=== PATIENT | female | born 1980 | race Caucasian/White ===

== ENCOUNTER 2017-05-15 07:39 | Day surgery (SDC) | payer OTHER ==
[~2017-05-15] VITALS: Ht 170.2 cm; Wt 111.3 kg
[2017-05-15] MEDS ORDERED: ACYC800 PO (08:19)
[2017-05-15] MEDS ORDERED: Omeprazole20 M1 (08:19)
[2017-05-15] MEDS ORDERED: CHOL10002 (08:19)
== END 2017-05-15 11:54 | disposition home or self-care (01) ==
LOC: ORSCSDS 07:39
PROVIDERS: Obstetrics & Gynecology
PROC: 0UT74ZZ Resection of Bilateral Fallopian Tubes, Percutaneous Endoscopic Approach (ICD-10-PCS; principal; 2017-05-15 09:00)
DX: Z30.2 Encounter for sterilization (principal); N80.3 Endometriosis of pelvic peritoneum; E03.9 Hypothyroidism, unspecified; K21.9 Gastro-esophageal reflux disease without esophagitis; E66.01 Morbid (severe) obesity due to excess calories; Z68.38 Body mass index [BMI] 38.0-38.9, adult; Z79.899 Other long term (current) drug therapy
CPT/HCPCS: 88302; J0171; J0690; J1100; J2250; J2405; J2710; J3010; J7120

== ENCOUNTER → 2017-08-27 | Outpatient (CLI) | payer OTHER ==
[~2017-08-27] MED LIST: ACYC800 PO; CHOL10002; Omeprazole20 M1
[2017-08-27 18:01] LABS: BASOPHILS ABSOLUTE AUTO 0.04 K/mm3 (0.00-0.23); BASOPHILS PERCENT AUTO 0 % (0-2); EOSINOPHILS ABSOLUTE AUTO 0.13 K/mm3 (0.00-0.68); EOSINOPHILS PERCENT AUTO 1 % (0-6); Hematocrit 44.6 % (33.0-51.0); Hemoglobin 14.9 g/dL (11.5-16.0); IMMATURE GRAN ABSOLUTE AUTO 0.02 K/mm3 (0.00-0.10); IMMATURE GRAN PERCENT AUTO 0 % (0-1); LYMPHOCYTES ABSOLUTE AUTO 2.67 K/mm3 (0.84-5.20); LYMPHOCYTES PERCENT AUTO 30 % (21-46); MONOCYTES ABSOLUTE AUTO 0.55 K/mm3 (0.16-1.47); MONOCYTES PERCENT AUTO 6 % (4-13); Mean Corpuscular HGB 30.1 pg (26.0-34.0); Mean Corpuscular HGB Conc 33.4 g/dL (31.5-36.5); Mean Corpuscular Volume 90 fL (80-100); Mean Platelet Volume 10.3 fL (9.1-12.4); NEUTROPHILS ABSOLUTE AUTO 5.59 K/mm3 (1.96-9.15); NEUTROPHILS PERCENT AUTO 62 % (41-73); Platelet Count 271 K/mm3 (150-400); RDW Coefficient Variation 12.6 % (11.7-14.2); RDW Standard Deviation 41.9 fL (35.1-46.3); Red Blood Cell Count 4.95 M/mm3 (3.80-5.20)
[2017-08-27 18:41] LABS: Alanine Aminotransfer (ALT/SGP 31 U/L (12-78); Albumin, Blood 3.8 g/dL (3.4-5.0); Albumin/Globulin Ratio 1.1 (0.8-1.8); Alk Phos 88 U/L (50-136); Anion Gap 10 mmol/L (6-16); Aspartate Aminotrans (AST/SGOT 18 U/L (12-37); Bilirubin, Total 0.8 mg/dL (0.1-1.0); Blood Urea Nitrogen 11 mg/dL (8-24); CHOL/HDL RATIO 6.1; CO2, Blood 24 mmol/L (21-32); Calcium, Blood 8.7 mg/dL (8.5-10.1); Chloride, Blood 106 mmol/L (98-108); Cholesterol 196 mg/dL (50-200); Creatinine, Blood 0.73 mg/dL (0.40-1.00); Globulin, Blood 3.5 g/dL (2.2-4.0); Glomerular Filtration Rate >60 (60-); Glucose, Blood 98 mg/dL (70-99); HDL Cholesterol 32 mg/dL (>39); LDL/HDL RATIO 3.2; Low Density Lipoprotein Chol 102 mg/dL (0-110); Potassium, Blood 4.2 mmol/L (3.5-5.5); Sodium, Blood 140 mmol/L (136-145); Total Protein, Blood 7.3 g/dL (6.4-8.2); Triglycerides 309 mg/dL (30-140); Very Low Density Lipoprot Chol 61 mg/dL (6-28)
== END ==
LOC: LAB SHORT 08:17
PROVIDERS: Nurse Practitioner Adult Health
DX: E03.9 Hypothyroidism, unspecified (principal); E66.9 Obesity, unspecified; E78.5 Hyperlipidemia, unspecified; F41.8 Other specified anxiety disorders; Z86.32 Personal history of gestational diabetes
CPT/HCPCS: 80053; 80061; 83036; 84443; 85025

== ENCOUNTER 2018-08-14 05:03 | Emergency (ER) | payer OTHER ==
[~2018-08-14] VITALS: Ht 170.2 cm; Wt 108.0 kg
[2018-08-14] MEDS ORDERED: METPRE4DP PO (08:47)
== END 2018-08-14 09:15 | disposition home or self-care (01) ==
LOC: ER 05:03
DX: L50.0 Allergic urticaria (principal); Z87.891 Personal history of nicotine dependence; Z88.8 Allergy status to other drugs, medicaments and biological substances; Z88.0 Allergy status to penicillin
CPT/HCPCS: 36415; 96374; 96375; 99283-25; J1200; J2930

== ENCOUNTER 2018-10-04 22:07 | Emergency (ER) | payer OTHER ==
[~2018-10-04] VITALS: Ht 170.2 cm; Wt 108.9 kg
[~2018-10-04 22:07] MED LIST changes: +METPRE4DP PO
[2018-10-04] MEDS ORDERED: Lipitor20 MG PO (22:27)
[2018-10-04] MEDS ORDERED: DAILY VIT (22:28)
[2018-10-04] MEDS ORDERED: EPIPEN0.3 MG/0.3 (22:28)
[2018-10-05] MEDS ORDERED: IBUP600 PO (12:23)
[2018-10-05] MEDS ORDERED: Norco 7.5-3251 EACH PO (12:23)
== END 2018-10-04 23:19 | disposition home or self-care (01) ==
LOC: ER 22:07
DX: L50.0 Allergic urticaria (principal); Z91.013 Allergy to seafood; Z88.0 Allergy status to penicillin; Z88.8 Allergy status to other drugs, medicaments and biological substances; Z79.899 Other long term (current) drug therapy; Z87.891 Personal history of nicotine dependence
CPT/HCPCS: 96374; 96375; 99283-25; J1200; J2930

== ENCOUNTER 2018-10-05 11:09 | Emergency (ER) | payer OTHER ==
[~2018-10-05] VITALS: Ht 170.2 cm; Wt 108.9 kg
[~2018-10-05 11:09] MED LIST changes: +DAILY VIT; +EPIPEN0.3 MG/0.3; +Lipitor20 MG PO
[2018-10-05] MEDS ORDERED: IBUP600 PO (12:23)
[2018-10-05] MEDS ORDERED: Norco 7.5-3251 EACH PO (12:23)
== END 2018-10-05 13:30 | disposition home or self-care (01) ==
LOC: ER 11:09
DX: S20.219A Contusion of unspecified front wall of thorax, initial encounter (principal); V43.52XA Car driver injured in collision with other type car in traffic accident, initial encounter; Z91.013 Allergy to seafood; Z88.0 Allergy status to penicillin; Z88.1 Allergy status to other antibiotic agents; Z91.048 Other nonmedicinal substance allergy status; Z79.899 Other long term (current) drug therapy; Z87.891 Personal history of nicotine dependence
CPT/HCPCS: 71046; 99284-25

== ENCOUNTER → 2019-08-02 | Outpatient (CLI) | payer OTHER ==
[~2019-08-02] MED LIST changes: +IBUP600 PO; +Norco 7.5-3251 EACH PO
[2019-08-03 11:09] LABS: ABBOTT SARS COV-2 IGG AB Negative (Negative); SARS COV-2 IGG AB Negative
== END | disposition home or self-care (01) ==
LOC: LAB SHORT 12:26 → LAB EV 12:26
PROVIDERS: Physician Assistant Medical
DX: R05 Cough (principal)
CPT/HCPCS: 86769

== ENCOUNTER → 2020-10-21 | Outpatient (CLI) | payer OTHER | END | disposition home or self-care (01) | LOC: LAB SHORT 12:40 → LAB 12:40 | DX: N39.0 Urinary tract infection, site not specified (principal) | CPT/HCPCS: 87077; 87086; 87186 ==

== ENCOUNTER 2023-04-15 01:43 | Observation (INO) | payer OTHER ==
[~2023-04-15] VITALS: Ht 170.2 cm; Wt 106.7 kg
[~2023-04-15 01:43] MED LIST changes: -EPIPEN0.3 MG/0.3; +EPIPEN0.3 MG/0.3 IM
[2023-04-15 02:26] LABS: Hematocrit 36.3 % (33.0-51.0); Hemoglobin 12.5 g/dL (11.5-16.0); Mean Corpuscular HGB 30.5 pg (26.0-34.0); Mean Corpuscular HGB Conc 34.4 g/dL (31.5-36.5); Mean Corpuscular Volume 89 fL (80-100); Mean Platelet Volume 9.7 fL (9.1-12.4); Platelet Count 227 K/mm3 (150-400); RDW Coefficient Variation 12.8 % (11.7-14.2); RDW Standard Deviation 41.9 fL (35.1-46.3); White Blood Cell Count 19.74 K/mm3 (4.00-11.30)
[2023-04-15] MEDS ORDERED: NS 1,000 ML IV SCH ×2 (02:40→04:45)
[2023-04-15] MEDS ORDERED: CefTRIAXone Sodium 1,000 MG in NS 50 ML IV ONE (02:40)
[2023-04-15 02:44] LABS: Albumin, Blood 2.3 g/dL (3.4-5.0); Albumin/Globulin Ratio 0.4 (0.8-1.8); Bilirubin, Total 0.8 mg/dL (0.1-1.0); Bun/Creatinine Ratio 11.4 (12.0-20.0); Creatinine, Blood 0.7 mg/dL (0.40-1.00); Globulin, Blood 5.4 g/dL (2.2-4.0); Phosphorus, Blood 2.7 mg/dL (2.5-4.9); Potassium, Blood 3.3 mmol/L (3.5-5.5); Total Protein, Blood 7.7 g/dL (6.4-8.2)
[2023-04-15 02:47] LABS: BAND PERCENT MAN 1 % (0-8); BASOPHILS PERCENT MAN 0 % (0-2); EOSINOPHILS PERCENT MAN 0 % (0-6); LYMPHOCYTES ABSOLUTE MAN 0.78 K/mm3 (0.84-5.20); LYMPHOCYTES PERCENT MAN 4 % (21-46); MONOCYTES ABSOLUTE MAN 1.18 K/mm3 (0.16-1.47); MONOCYTES PERCENT MAN 6 % (4-13); NEUTROPHILS ABSOLUTE MAN 17.76 K/mm3 (1.96-9.15); SEG NEUTROPHILS PERCENT MAN 89 % (41-73); TOTAL CELLS COUNTED 100
[2023-04-15 03:01] LABS: Source, Urine Clean Catch
[2023-04-15 03:11] LABS: Bilirubin, Urine Neg (Neg); Blood, Urine 3+ (Neg); Glucose Qualitative, Urine Neg (Neg); Ketones, Urine Neg (Neg); Leukocyte Esterase, Urine Neg (Neg); Nitrite, Urine Neg (Neg); Protein, Urine 2+ (Neg); Specific Gravity, Urine 1.005 (1.003-1.022); Urobilinogen, Urine NORM (Normal); pH, Urine 6.5 (5.0-8.0)
[2023-04-15 03:19] LABS: Appearance, Urine Clear (Clear); Color, Urine Yellow (P-Yellow)
[2023-04-15 03:20] LABS: Bacteria Few /hpf; Red Blood Cells, Urine 0-2 /hpf (0-2); Squamous Epithelial Cells Few /hpf (Few); White Blood Cells, Urine 0-2 /hpf (0-5)
[2023-04-15] MEDS ORDERED: Potassium Chloride 20 MEQ TabCR PO ONE (03:50)
[2023-04-15] MEDS ORDERED: FLU VACC QS2023-24(6MOS UP)/PF 60 MCG/0.5 ML SYRINGE IM ONE (04:05)
[2023-04-15] MEDS ORDERED: Ondansetron HCl 2 MG / ML 2ML Vial IV PRN (04:05)
[2023-04-15] MEDS ORDERED: Morphine Sulfate 4 MG/1 ML Injection IV ONE (04:10)
[2023-04-15] MEDS ORDERED: FentaNYL Citrate 50 MCG/ML 2 ML Injection IV PRN (04:10)
[2023-04-15] MEDS ORDERED: Remdesivir (EUA) 200 MG in NS 250 ML IV ONE (04:10)
[2023-04-15] MEDS ORDERED: Potassium Chloride 40 MEQ in NS 250 ML IV ONE (04:15)
[2023-04-15 04:38] LABS: International Normalized Ratio 0.98; Prothrombin Time Results 10.3 Sec (9.7-11.5)
[2023-04-15] MEDS ORDERED: Lactated Ringer's 1,000 ML IV ONE (04:53)
[2023-04-15] MEDS ORDERED: Azithromycin 500 MG in NS 250 ML IV SCH (05:00)
--- NOTE | 2023-04-15 05:26 | NUR ---
THIS RN CALLED ED NURSE FOR REPORT. ED NURSE WAS PROVIDING PATIENT CARE, AWAITING REPORT.
[2023-04-15 05:36] LABS: Influenza A, PCR NEGATIVE (NEGATIVE); Influenza B, PCR NEGATIVE (NEGATIVE); Resp Syncytial Virus, PCR NEGATIVE (NEGATIVE); SARS-Cov-2 (COVID-19) PCR, MMC NEGATIVE (NEGATIVE)
[2023-04-15] MEDS ORDERED: Lactated Ringer's 1,000 ML IV SCH (05:45)
[2023-04-15 06:12] VITALS: BP 121/74
--- NOTE | 2023-04-15 06:29 | NUR ---
ADMIT NOTE PATIENT WAS ADMITTED TO MEDICAL FLOOR AT 0600. IV FLUIDS INFUSING ORDERED, DR AWARE OF ADDITIONAL FLUIDS HAVING TO BE ADMINISTERED AFTER IV POTASSIUM.
[2023-04-15] MEDS ORDERED: Loperamide HCl 2 MG Cap PO PRN (06:35)
[2023-04-15] MEDS ORDERED: Dexamethasone Sodium Phosphate 4 MG/ML 1ML Vial IV SCH (07:00)
[2023-04-15 07:30] VITALS: BP 131/81
[2023-04-15 08:20] LABS: Hemoglobin 12.7 g/dL (11.5-16.0); Mean Corpuscular HGB Conc 35.3 g/dL (31.5-36.5); Mean Corpuscular Volume 88 fL (80-100); Mean Platelet Volume 9.4 fL (9.1-12.4); Platelet Count 233 K/mm3 (150-400); RDW Coefficient Variation 12.8 % (11.7-14.2); RDW Standard Deviation 41.5 fL (35.1-46.3); White Blood Cell Count 21.58 K/mm3 (4.00-11.30)
[2023-04-15 08:39] LABS: BAND PERCENT MAN 4 % (0-8); BASOPHILS PERCENT MAN 0 % (0-2); EOSINOPHILS PERCENT MAN 0 % (0-6); LYMPHOCYTES ABSOLUTE MAN 2.15 K/mm3 (0.84-5.20); LYMPHOCYTES PERCENT MAN 10 % (21-46); MONOCYTES ABSOLUTE MAN 0.86 K/mm3 (0.16-1.47); MONOCYTES PERCENT MAN 4 % (4-13); NEUTROPHILS ABSOLUTE MAN 18.55 K/mm3 (1.96-9.15); SEG NEUTROPHILS PERCENT MAN 82 % (41-73); TOTAL CELLS COUNTED 100
[2023-04-15 08:48] LABS: Albumin, Blood 2.2 g/dL (3.4-5.0); Albumin/Globulin Ratio 0.4 (0.8-1.8); Bilirubin, Total 0.6 mg/dL (0.1-1.0); Bun/Creatinine Ratio 6.2 (12.0-20.0); Calcium, Blood 8.4 mg/dL (8.5-10.1); Creatinine, Blood 0.64 mg/dL (0.40-1.00); Globulin, Blood 5.1 g/dL (2.2-4.0); Total Protein, Blood 7.3 g/dL (6.4-8.2)
[2023-04-15] MEDS ORDERED: Enoxaparin 40 MG/0.4 ML SYR SC SCH (09:00)
[2023-04-15] MEDS ORDERED: Lactobacil 2-S.Thermo-Bifido 1 1 Cap PO SCH (09:00)
[2023-04-15] MEDS ORDERED: Ketorolac Tromethamine 15mg Vial IV PRN (09:25)
[2023-04-15] MEDS ORDERED: DiphenhydrAMINE HCl 50 MG/ML 1ML Vial IV PRN (09:25)
--- NOTE | 2023-04-15 12:10 | NUR ---
NOTE PT STARTED WITH CLEAR LIQUIDS. TOELRATED WELL. HER HAD BROUGHT HIMSELF A HAMBURGER. SHE STOLE HIS BURGER. TOLERATED WELL. NO N/V. ABD SOFT FLAT. SKIN LESS FLUSHED. BENADRYL/TORDOL EFFECTIVE FOR PAIN. PT FEELING MUCH BETTER. CARE ONGOING.
--- NOTE | 2023-04-15 17:17 | NUR ---
NOTE PT AWKAE AND ALERT. TORDOL/BENADRYL VERY EFFECTIVE FOR HER GENERALIZED PAIN. NECK PAIN RESOLVED. APPETITE EXCELLENT. NO N/V OR DIARRHEA TODAY. IVF INFUSING. UP AD TIANNA IN ROOM. BED LOW AND LOCKED. CALL LIGHT WITH IN REACH. CARE ONGOING.
[2023-04-15 17:39] VITALS: BP 128/79
[2023-04-15 19:17] VITALS: BP 128/88
--- NOTE | 2023-04-16 04:27 | NUR ---
END OF SHIFT SUMMARY PT A&O x4, VSS, AFEBRILE. PT ON RA, LUNGS CTA, RESP RATE EVEN AND UNLABORED. PT KIND AND COOPERATIVE WITH CARE PROVIDED. PT ABLE TO MAKE NEEDS KNOWN. PT UP AD TIANNA IN ROOM, INDEP WITH ADL's. PT STATED SHE IS FEELING MUCH BETTER LAST NIGHT. PT REQUESTED PAIN MEDICATION x1. PT RECEIVED IV BENADRYL AND IV TORADOL, WHICH WAS EFFECTIVE IN RELIEVING GENERALIZED ALL OVER BODY ACHY DISCOMFORT. PT SLEPT WELL ON AND OFF THROUGHOUT THE NIGHT. CALL LIGHT WITHIN REACH, WCTM.
[2023-04-16 04:40] VITALS: BP 130/87
[2023-04-16 04:57] LABS: BASOPHILS ABSOLUTE AUTO 0.05 K/mm3 (0.00-0.23); BASOPHILS PERCENT AUTO 0 % (0-2); EOSINOPHILS ABSOLUTE AUTO 0.01 K/mm3 (0.00-0.68); EOSINOPHILS PERCENT AUTO 0 % (0-6); Hematocrit 33.1 % (33.0-51.0); Hemoglobin 11.5 g/dL (11.5-16.0); IMMATURE GRAN ABSOLUTE AUTO 0.48 K/mm3 (0.00-0.10); IMMATURE GRAN PERCENT AUTO 3 % (0-1); LYMPHOCYTES PERCENT AUTO 13 % (21-46); MONOCYTES ABSOLUTE AUTO 1.16 K/mm3 (0.16-1.47); MONOCYTES PERCENT AUTO 7 % (4-13); Mean Corpuscular HGB 30.9 pg (26.0-34.0); Mean Corpuscular HGB Conc 34.7 g/dL (31.5-36.5); Mean Corpuscular Volume 89 fL (80-100); Mean Platelet Volume 9.6 fL (9.1-12.4); NEUTROPHILS ABSOLUTE AUTO 12.99 K/mm3 (1.96-9.15); NEUTROPHILS PERCENT AUTO 77 % (41-73); Platelet Count 231 K/mm3 (150-400); RDW Coefficient Variation 13.2 % (11.7-14.2); RDW Standard Deviation 43.2 fL (35.1-46.3); Red Blood Cell Count 3.72 M/mm3 (3.80-5.20); White Blood Cell Count 16.89 K/mm3 (4.00-11.30)
[2023-04-16 05:25] LABS: Albumin/Globulin Ratio 0.4 (0.8-1.8); Bilirubin, Total 0.3 mg/dL (0.1-1.0); Bun/Creatinine Ratio 25.2 (12.0-20.0); Calcium, Blood 8.7 mg/dL (8.5-10.1); Creatinine, Blood 0.67 mg/dL (0.40-1.00); Globulin, Blood 4.5 g/dL (2.2-4.0); Potassium, Blood 3.2 mmol/L (3.5-5.5); Total Protein, Blood 6.5 g/dL (6.4-8.2)
[2023-04-16] MEDS ORDERED: CefTRIAXone Sodium 1,000 MG in NS 50 ML IV SCH (06:00)
[2023-04-16 07:53] VITALS: BP 133/92
--- NOTE | 2023-04-16 08:18 | NUR ---
PT STATES NOT RECEIVING SOME HOE MEDS, LISINOPRIL, LIPITOR, TOPIRAMATE. CALLED DR WALL. SHE TO REVIEW, MAYASEND HOME TODAY.
[2023-04-16] MEDS ORDERED: LISI5 PO (08:26)
[2023-04-16] MEDS ORDERED: LOMAIRA8 MG PO (08:27)
[2023-04-16] MEDS ORDERED: TOPI100 PO (08:28)
[2023-04-16] MEDS ORDERED: Lisinopril 5 MG Tab PO SCH (09:00)
[2023-04-16] MEDS ORDERED: Remdesivir (EUA) 100 MG in NS 250 ML IV SCH (12:00)
[2023-04-16] MEDS ORDERED: CEFU500T30 PO (12:32)
--- NOTE | 2023-04-16 16:11 | NUR ---
1553 DISCHARGE REVIEWED WITH PT AND SPOUSE. IV PULLED BY AIDE. TELE REMOVED AND RETURNED. PT VERBALIZED UNDERSTANDING MEDS AND INST. PT WHEELED TODOOR AT 0390
[2023-04-16] MEDS ORDERED: Atorvastatin 10 MG Tab PO SCH (21:00)
[2023-04-16] MEDS ORDERED: Topiramate 25 MG Tab PO SCH (21:00)
--- NOTE | 2023-04-17 02:57 | NUR ---
0230: [facility] CALLED TO NOTIFY THE FINAL RESULTS FROM THE RECENT BLOOD CULTURE FROM LAST ADMISSION. THIS RN ACCESSED THIS PT'S CHART POST DISCHARGE IN ORDER TO CONTACT THE PRIMARY CARE PROVIDER REGARDING THESE CRITICAL LAB RESULTS. THE RESULTS: GRAM POSITIVE COCCI IN CHAINS AND GRAM POSITIVE COCCI IN CLUSTERS. CONTACTED [facility], AND SPOKE TO [facility] PRESIDENT PHYSICIAN DAMON FELIX MD AT 0320. ALL QUESTIONS/CONCERNS WERE ANSWERED/ADDRESSED.
== END 2023-04-16 16:00 | disposition home or self-care (01) ==
LOC: ER 01:43 → MEDS 01:44 → ENPENDDIS 04-16 14:04 → MEDS 04-16 16:00
PROVIDERS: Emergency Medicine; Family Medicine; ADMIT Internal Medicine
DX: A41.9 Sepsis, unspecified organism (principal); J12.82 Pneumonia due to coronavirus disease 2019; U07.1 COVID-19; I10 Essential (primary) hypertension; E78.5 Hyperlipidemia, unspecified; K21.9 Gastro-esophageal reflux disease without esophagitis; E03.9 Hypothyroidism, unspecified; Z91.013 Allergy to seafood; Z79.899 Other long term (current) drug therapy; Z87.891 Personal history of nicotine dependence; Z88.0 Allergy status to penicillin; Z91.048 Other nonmedicinal substance allergy status
CPT/HCPCS: 0241U; 36415; 62270; 70450; 71045; 80053; 81001; 83605; 83735; 83880; 84100; 84703; 85025; 85610; 87040; 87184; 93005; 93010; 96365-59; 96366; 96366-59; 96367; 96368; 96372; 96375; 96375-59; 96376; 99285-25; A9270; G0378; J0248; J0456; J0696; J1100; J1200; J1650; J1885; J2270; J2405; J3370; J3480; J7030; J7050; J7120

== ENCOUNTER → 2025-02-20 | Outpatient (CLI) | payer OTHER ==
[~2025-02-20] MED LIST changes: +CEFU500T30 PO; +CEPH500 PO; +LISI5 PO; +LOMAIRA8 MG PO; +TOPI100 PO
[2025-02-20 20:25] LABS: Bacterial Vaginosis PCR Negative (NEGATIVE); Candida Group, PCR NOT DETECTED (NOT DETECT); Candida glabrata-krusei, PCR NOT DETECTED (NOT DETECT)
== END ==
LOC: LAB 17:12 → LAB SHORT 17:12
PROVIDERS: Family Medicine
DX: R35.0 Frequency of micturition (principal)
CPT/HCPCS: 81515